=== PATIENT | female | born 1980 | race African-American/Black ===

== ENCOUNTER 2016-12-14 11:00 | Emergency (ER) | payer SELFPAY ==
[~2016-12-14] VITALS: Ht 160 cm; Wt 99.8 kg
--- NOTE | ~2016-12-14 | US98 ---
[facility] A Service of [facility] RADIOLOGY TEXT RESULTS PATIENT: CHRIS ESCOBAR LOCATION: CFTX : 84 UNIT #: [id number] AGE: [address]: Susan Lion SEX: F ORDER DR: [id number] [facility] [address] [place], [place] [address] [id number] MR#: [id number] Acc #: [id number] NAME: CHRIS ESCOBAR : 1980 SEX: F STUDY DATE/TIME: 12/14/2016 12:58 UNIT: CFTX ROOM: STUDY DESCRIPTION: US Pelvic Non-OB Complete Attending Physician: Susan Lion P.A.-C. Ordering Physician: Susan Lion P.A.-C. Primary Care Physician: [facility] MEDICAL IMAGING REPORT This report is preliminary unless electronic signature is present EXAM Pelvic ultrasound HISTORY Pelvic pain abnormal vaginal bleeding starting today. History of ectopic . COMPARISON 01/30/2014. FINDINGS Transabdominal followed by transvaginal imaging was performed. The uterus is about 7.6 x 4.0 x 5.7 cm on the transabdominal images. Both ovaries are visualized and appear to have normal flow. Transvaginal imaging better shows the myometrium which appears normal. Endometrial tissue is about 9 mm in thickness. Both ovaries shows small follicles and abnormal flow. No free fluid. IMPRESSION Normal pelvic ultrasound. There is no evidence of uterine fibroid or endometrial tissue thickening. Both ovaries are normal. Dictated by... Zeferino Thornton M.D. THIS IS AN ELECTRONICALLY VERIFIED REPORT Zeferino Thornton M.D. at 12/15/2016 6:51 AM ROBSON/rnr [facility] A Service [facility] RADIOLOGY TEXT RESULTS PATIENT: CHRIS ESCOBAR LOCATION: CFTX : 82 UNIT #: [id number] AGE: [address]: Susan Lion SEX: F ORDER DR: TD: 12/14/2016 16:46 JOB #: [id number] MEDICAL IMAGING REPORT Page 1 of 1 COPY
[~2016-12-14 11:00] MED LIST: AURALGAN OTIC S10 ML AD; BACTRIM DS TABL1 TA1 PO; BENZONATATE PO; CIPRO PO; FLEXERIL PO; FLOMAX0.4 M1 PO; IBUPROFEN PO; IBUPROFEN800 MG PO; KETOPROFEN PO; LIDOCAINE HC20 MG/13 PO; LIDOCAINE VISCOU1 ML EXT; LORTAB ELIXIR15 ML PO; PHENERGAN25 MG PO; PREDNISONE PO; PYRIDIUM PO; ROBITUSSIN A-C S5 ML PO; TYLOX 5-500 CA1 EACH PO; VICODIN 5/1 TAB 5/50 PO; ZITHROMAX PO
[2016-12-14 12:44] LABS: BASOPHIL% 0.5 % (0-2.5); EOSINOPHIL# 0.1 X10e3 (0-0.7); EOSINOPHIL% 1.4 % (0.0-7.0); HEMATOCRIT 35.9 % (35.0-45.0); HEMOGLOBIN 12.1 gm/dL (12.0-16.0); LYMPHOCYTE# 2.8 X10e3 (1.0-3.5); LYMPHOCYTE% 47.9 % (17.0-45.0); MEAN CELL VOLUME 81.3 FL (83-96); MEAN CORPUSCULAR HEMOGLOBIN 27.5 PG (28-34); MEAN CORPUSCULAR HGB CONC 33.8 g/dL (30-36); MEAN PLATELET VOLUME 7.8 FL (6.5-11.5); MONOCYTE# 0.4 X10e3 (0-1.0); MONOCYTE% 6.3 % (3.0-12.0); NEUTROPHIL# 2.6 X10e3 (1.5-7.1); NEUTROPHIL% 43.9 % (40-75); PLATELET COUNT 304 X10e3 (140-420); RED BLOOD COUNT 4.42 X10e (3.90-5.30); RED CELL DISTRIBUTION WIDTH 14.5 % (11.0-15.5); WHITE BLOOD COUNT 5.8 X10e3 (4.0-10.5)
[2016-12-14 12:46] LABS: DIFF IND NO
[2016-12-14 12:56] LABS: URINE SOURCE CLEAN CATCH
[2016-12-14 13:26] LABS: URINE APPEARANCE CLEAR; URINE BILIRUBIN NEG (NEG); URINE BLOOD NEG (NEG); URINE COLOR YELLOW; URINE GLUCOSE NORM (NORM); URINE KETONE NEG (NEG); URINE LEUKOCYTE ESTERASE NEG (NEG); URINE NITRATE NEG (NEG); URINE PROTEIN NEG (NEG); URINE UROBILINOGEN NORM (NORM)
[2016-12-14 13:28] LABS: CULTURE INDICATED? NO
[2016-12-16 06:13] LABS: CHLAMYDIA TRACH Not Detected (Not Detected); N GONOR Not Detected (Not Detected)
== END 2016-12-14 14:20 | disposition home or self-care (01) ==
LOC: CED 11:00 → CFTX 11:00
PROVIDERS: Physician Assistant
DX: N93.9 Abnormal uterine and vaginal bleeding, unspecified (principal); I10 Essential (primary) hypertension; Z98.51 Tubal ligation status; Z88.5 Allergy status to narcotic agent
CPT/HCPCS: 76830; 76856; 81003; 84703; 85025; 87491; 87591; 87808; 87905; 99284